=== PATIENT | female | born 1975 | race Caucasian/White ===

== ENCOUNTER 2023-07-20 16:06 | Inpatient (IN) | payer MEDICAID ==
[~2023-07-20] VITALS: Ht 160 cm; Wt 90.7 kg
[2023-07-20 16:38] VITALS: BP 142/87; PULSE 109; RESP 18; TEMP 98.3; O2SAT 95
[2023-07-20] MEDS ORDERED: THIAMINE 200 MG/2 ML VIAL IV ONE (17:15)
[2023-07-20] MEDS ORDERED: FOLIC ACID 1 MG TAB PO ONE (17:15)
[2023-07-20] MEDS ORDERED: ONDANSETRON 4 MG/2 ML VIAL IVP ONE (17:15)
[2023-07-20] MEDS ORDERED: NACL 0.9% 1,000 ML IV ONE (17:15)
[2023-07-20 17:30] LABS: BILIRUBIN,URINE 3+ (NEGATIVE); BLOOD, URINE NEGATIVE (NEGATIVE); LEUKOCYTE ESTERASE ,URINE TRACE (NEGATIVE); NITRITE, URINE POSITIVE (NEGATIVE); PH,URINE 5.5 (5.0-9.0); PROTEIN,URINE 2+ (NEGATIVE); UGLUCOSE TRACE (NEGATIVE)
[2023-07-20 17:32] LABS: APPEARANCE,URINE SLIGHTLY CLOUDY (CLEAR); COLOR,URINE ORANGE (YELLOW)
[2023-07-20 17:36] LABS: ICTOTEST POSITIVE (NEGATIVE)
[2023-07-20 17:40] LABS: RBC,URINE 0-5 /HPF (0-5)
[2023-07-20 17:41] LABS: BACTERIA,URINE 10-30 (MOD) /HPF (None Seen); SQUAMOUS EPITHELIAL CELL,UR 4-10 (MOD) /LPF (0-3 (FEW))
[2023-07-20 17:41] LABS: BASOPHILS % (AUTO) 0.2 % (0.0-2.0); EOSINOPHILS % (AUTO) 0.5 % (0.0-4.0); HEMATOCRIT 35.6 % (36-48); HEMOGLOBIN 12.1 g/dL (12.0-16.0); LYMPHOCYTES # (AUTO) 2.2 K/uL (2.5-16.5); LYMPHOCYTES % (AUTO) 36.6 % (20.5-51.1); MEAN CORPUSCULAR HEMOGLOBIN 35 pg (27-31); MEAN CORPUSCULAR HGB CONC 34 g/dL (33-37); MEAN CORPUSCULAR VOLUME 102.2 fL (80-94); MONOCYTES # (AUTO) 0.9 K/uL (0.8-1.0); NEUTROPHILS % (AUTO) 48.7 % (42.2-75.2); PLATELET COUNT (AUTO) 80 K/uL (140-450); RED BLOOD CELL COUNT(AUTO) 3.48 MIL/uL (4.20-5.40); WHITE BLOOD COUNT (AUTO) 6.1 K/uL (4.8-10.8)
[2023-07-20 17:42] LABS: AMPHETAMINE, URINE NEGATIVE ng/ml (NEG <=1000); BARBITURATE, URINE NEGATIVE ng/ml (NEG <=200); BENZODIAZEPINE, URINE NEGATIVE ng/mL (NEG <=200); CANNABINOID, URINE NEGATIVE ng/mL (NEG <=50); COCAINE, URINE NEGATIVE ng/mL (NEG <=300); OPIATE, URINE NEGATIVE ng/mL (NEG <=2000); PHENCYCLIDINE SCREEN,URINE NEGATIVE ng/mL (NEG <=25)
[2023-07-20 17:50] LABS: INR 1.46 (0.8-1.2)
[2023-07-20 17:56] LABS: ALBUMIN 2.5 g/dL (3.4-5.0); ANION GAP 15.8 (8-16); CALCIUM 7.5 mg/dL (8.5-10.1); CARBON DIOXIDE 32.8 mmol/L (21-32); CREATININE 0.8 mg/dL (0.6-1.3); TOTAL BILIRUBIN 3.3 mg/dL (0.0-1.0); TOTAL PROTEIN, SERUM 7.3 g/dL (6.4-8.2)
[2023-07-20 17:58] LABS: POTASSIUM 2.6 mmol/L (3.5-5.1)
[2023-07-20] MEDS ORDERED: KCL 20 MEQ IN 100 mL PREMIX 200 ML IV ONE (18:30)
[2023-07-20] MEDS ORDERED: POTASSIUM CHLORIDE 10 MEQ TABER PO ONE (18:30)
[2023-07-20] MEDS ORDERED: ONDANSETRON 4 MG/2 ML VIAL IVP PRN (19:00)
[2023-07-20] MEDS ORDERED: HYDROcodone/APAP 5/325 MG 1 TAB TAB PO PRN (19:00)
[2023-07-20] MEDS: LACTATED RINGERS 1,000 ML IV SCH (19:05)
[2023-07-20] MEDS ORDERED: cefTRIAXone 1,000 MG VIAL ONE (19:20)
[2023-07-20] MEDS: LACTULOSE 20 GM/30 ML UDC PO SCH (22:43)
[2023-07-20] MEDS: LORazepam 2 MG/ML VIAL IVP PRN (22:44)
[2023-07-21] MEDS ORDERED: GABA300C PO (03:14)
[2023-07-21] MEDS ORDERED: ATOR20TA PO (03:14)
[2023-07-21] MEDS ORDERED: PANT40EC PO (03:14)
[2023-07-21] MEDS: MORPHINE SULFATE 2 MG/ML SYR IVP PRN ×2 (03:36→11:05)
[2023-07-21 06:42] LABS: BASOPHILS % (AUTO) 0.4 % (0.0-2.0); EOSINOPHILS % (AUTO) 0.4 % (0.0-4.0); HEMATOCRIT 33.8 % (36-48); HEMOGLOBIN 11.5 g/dL (12.0-16.0); LYMPHOCYTES # (AUTO) 1.6 K/uL (2.5-16.5); LYMPHOCYTES % (AUTO) 29.8 % (20.5-51.1); MEAN CORPUSCULAR HEMOGLOBIN 35 pg (27-31); MEAN CORPUSCULAR HGB CONC 34 g/dL (33-37); MEAN CORPUSCULAR VOLUME 103.2 fL (80-94); MONOCYTES # (AUTO) 0.6 K/uL (0.8-1.0); NEUTROPHILS % (AUTO) 57.4 % (42.2-75.2); PLATELET COUNT (AUTO) 69 K/uL (140-450); RED BLOOD CELL COUNT(AUTO) 3.28 MIL/uL (4.20-5.40); RED CELL DISTRIBUTION WIDTH 16.4 % (11.6-13.7); WHITE BLOOD COUNT (AUTO) 5.3 K/uL (4.8-10.8)
[2023-07-21 06:57] LABS: ALBUMIN 2.4 g/dL (3.4-5.0); ANION GAP 15.4 (8-16); CARBON DIOXIDE 30.1 mmol/L (21-32); CREATININE 0.9 mg/dL (0.6-1.3); POTASSIUM 3.5 mmol/L (3.5-5.1); TOTAL BILIRUBIN 4.7 mg/dL (0.0-1.0); TOTAL PROTEIN, SERUM 6.8 g/dL (6.4-8.2)
[2023-07-21] MEDS: LACTATED RINGERS 1,000 ML IV SCH ×2 (08:26→15:31)
[2023-07-21 08:30] VITALS: BP 116/46; PULSE 101; PULSE 99; RESP 18; TEMP 98.2; O2SAT 93
[2023-07-21] MEDS: LACTULOSE 20 GM/30 ML UDC PO SCH ×2 (10:05→20:20)
[2023-07-21 12:00] VITALS: BP 130/63; PULSE 96; PULSE 97; RESP 18; TEMP 97.7; O2SAT 94
[2023-07-21] MEDS ORDERED: MAG SULF 2000 MG/WATER PREMIX 50 ML IV PRN (12:15)
[2023-07-21] MEDS: LORazepam 2 MG/ML VIAL IVP PRN ×2 (12:41→19:02)
[2023-07-21] MEDS: GABAPENTIN 300 MG CAP PO SCH ×2 (13:01→20:20)
[2023-07-21] MEDS: chlordiazePOXIDE 25 MG CAP PO SCH ×2 (13:01→17:46)
[2023-07-21 16:00] VITALS: BP 113/60; PULSE 100; PULSE 102; RESP 18; TEMP 98.2; O2SAT 93
[2023-07-21 20:00] VITALS: BP 131/69; PULSE 108; PULSE 117; RESP 18; TEMP 98.4; O2SAT 94
[2023-07-21] MEDS: ATORVASTATIN 20 MG TAB PO SCH (20:20)
[2023-07-21] MEDS: traZODone 50 MG TAB PO SCH (23:42)
[2023-07-22] VITALS: BP 104/47; PULSE 122; PULSE 133; RESP 18; TEMP 97.9; O2SAT 92
[2023-07-22] MEDS: LACTATED RINGERS 1,000 ML IV SCH ×3 (02:06→21:05)
[2023-07-22 04:00] VITALS: BP 121/56; PULSE 119; PULSE 121; RESP 17; TEMP 98.9; O2SAT 93
[2023-07-22] MEDS: GABAPENTIN 300 MG CAP PO SCH ×3 (05:15→20:49)
[2023-07-22 05:30] LABS: BASOPHILS % (AUTO) 0.1 % (0.0-2.0); EOSINOPHILS % (AUTO) 0.3 % (0.0-4.0); HEMATOCRIT 30.1 % (36-48); HEMOGLOBIN 10.2 g/dL (12.0-16.0); LYMPHOCYTES # (AUTO) 1.1 K/uL (2.5-16.5); LYMPHOCYTES % (AUTO) 23.5 % (20.5-51.1); MEAN CORPUSCULAR HEMOGLOBIN 35 pg (27-31); MEAN CORPUSCULAR HGB CONC 34 g/dL (33-37); MEAN CORPUSCULAR VOLUME 103.3 fL (80-94); MONOCYTES # (AUTO) 0.6 K/uL (0.8-1.0); MONOCYTES % (AUTO) 13.2 % (1.7-9.3); NEUTROPHILS # (AUTO) 3.1 K/uL (1.8-7.7); NEUTROPHILS % (AUTO) 62.9 % (42.2-75.2); PLATELET COUNT (AUTO) 54 K/uL (140-450); RED BLOOD CELL COUNT(AUTO) 2.91 MIL/uL (4.20-5.40); WHITE BLOOD COUNT (AUTO) 4.9 K/uL (4.8-10.8)
[2023-07-22 05:59] LABS: ALBUMIN 2.1 g/dL (3.4-5.0); CALCIUM 7.1 mg/dL (8.5-10.1); CARBON DIOXIDE 31.1 mmol/L (21-32); CREATININE 0.8 mg/dL (0.6-1.3); POTASSIUM 3.1 mmol/L (3.5-5.1); TOTAL BILIRUBIN 6.7 mg/dL (0.0-1.0)
[2023-07-22 08:00] VITALS: BP 113/41; PULSE 116; PULSE 121; RESP 17; TEMP 97.9; O2SAT 93
[2023-07-22] MEDS: MULTIVITAMIN 1 TAB PO SCH (08:55)
[2023-07-22] MEDS: THIAMINE 100 MG TAB PO SCH (08:55)
[2023-07-22] MEDS: LACTULOSE 20 GM/30 ML UDC PO SCH ×2 (08:56→20:49)
[2023-07-22] MEDS: PANTOPRAZOLE 40 MG TABEC PO SCH (08:56)
[2023-07-22] MEDS: chlordiazePOXIDE 25 MG CAP PO SCH ×3 (08:56→17:46)
[2023-07-22] MEDS: FOLIC ACID 1 MG TAB PO SCH (08:56)
[2023-07-22] MEDS: POTASSIUM CHLORIDE 10 MEQ TABER PO PRN (10:01)
[2023-07-22 12:00] VITALS: BP 112/46; PULSE 109; PULSE 116; RESP 18; TEMP 96.9; O2SAT 96
[2023-07-22] MEDS: LORazepam 2 MG/ML VIAL IVP PRN (12:17)
[2023-07-22] MEDS ORDERED: MAG SULF 2000 MG/WATER PREMIX 50 ML IV SCH (13:05)
[2023-07-22 16:00] VITALS: BP 103/57; PULSE 98; RESP 18; TEMP 97.8; O2SAT 99
[2023-07-22 20:00] VITALS: BP 127/59; PULSE 101; PULSE 102; RESP 17; TEMP 98.4; O2SAT 93
[2023-07-22] MEDS: traZODone 50 MG TAB PO SCH (20:49)
[2023-07-22] MEDS: ATORVASTATIN 20 MG TAB PO SCH (20:50)
[2023-07-22] MEDS: MORPHINE SULFATE 2 MG/ML SYR IVP PRN (22:32)
[2023-07-23] VITALS: BP 116/49; PULSE 109; PULSE 118; RESP 18; TEMP 98.7; O2SAT 98
[2023-07-23] MEDS: LACTATED RINGERS 1,000 ML IV SCH ×2 (03:36→07:05)
[2023-07-23 04:00] VITALS: BP 125/53; PULSE 106; PULSE 109; RESP 18; TEMP 98.7; O2SAT 95
[2023-07-23] MEDS: GABAPENTIN 300 MG CAP PO SCH ×3 (05:14→22:15)
[2023-07-23 06:47] LABS: BASOPHILS % (AUTO) 0.8 % (0.0-2.0); EOSINOPHILS # (AUTO) 0.1 K/uL (0-0.4); EOSINOPHILS % (AUTO) 1.4 % (0.0-4.0); HEMATOCRIT 30.6 % (36-48); HEMOGLOBIN 10.3 g/dL (12.0-16.0); LYMPHOCYTES # (AUTO) 1.4 K/uL (2.5-16.5); LYMPHOCYTES % (AUTO) 27.5 % (20.5-51.1); MEAN CORPUSCULAR HEMOGLOBIN 35 pg (27-31); MEAN CORPUSCULAR HGB CONC 34 g/dL (33-37); MEAN CORPUSCULAR VOLUME 104.6 fL (80-94); MONOCYTES # (AUTO) 0.5 K/uL (0.8-1.0); MONOCYTES % (AUTO) 10.3 % (1.7-9.3); PLATELET COUNT (AUTO) 64 K/uL (140-450); RED BLOOD CELL COUNT(AUTO) 2.92 MIL/uL (4.20-5.40); RED CELL DISTRIBUTION WIDTH 17.5 % (11.6-13.7)
[2023-07-23 07:14] LABS: ALBUMIN 2.1 g/dL (3.4-5.0); ANION GAP 9.5 (8-16); CALCIUM 7.9 mg/dL (8.5-10.1); CARBON DIOXIDE 30.8 mmol/L (21-32); CREATININE 0.6 mg/dL (0.6-1.3); POTASSIUM 3.3 mmol/L (3.5-5.1); TOTAL BILIRUBIN 7.9 mg/dL (0.0-1.0)
[2023-07-23 08:00] VITALS: BP 104/68; PULSE 104; PULSE 98; RESP 20; TEMP 97.7; O2SAT 95
[2023-07-23] MEDS: LACTULOSE 20 GM/30 ML UDC PO SCH (08:29)
[2023-07-23] MEDS: chlordiazePOXIDE 25 MG CAP PO SCH ×3 (08:30→22:14)
[2023-07-23] MEDS: THIAMINE 100 MG TAB PO SCH (08:30)
[2023-07-23] MEDS: MULTIVITAMIN 1 TAB PO SCH (08:30)
[2023-07-23] MEDS: FOLIC ACID 1 MG TAB PO SCH (08:30)
[2023-07-23] MEDS: PANTOPRAZOLE 40 MG TABEC PO SCH (08:31)
[2023-07-23] MEDS: POTASSIUM CHLORIDE 10 MEQ TABER PO PRN (08:35)
[2023-07-23] MEDS: levoFLOXacin 250 MG TAB PO SCH (12:07)
[2023-07-23] MEDS: LORazepam 2 MG/ML VIAL IVP PRN (13:29)
[2023-07-23] MEDS: ACETAMINOPHEN 325 MG TAB PO PRN (13:50)
[2023-07-23 15:06] LABS: HEPATITIS A ANTIBODY IGM Negative (Negative); HEPATITIS B CORE AB TOTAL Negative (Negative); HEPATITIS B CORE, IGM Negative (Negative); HEPATITIS B SURFACE ANTIBODY Reactive (.); HEPATITIS B SURFACE ANTIGEN Negative (Negative); HEPATITIS C VIRUS ANTIBODY Non Reactive (Non Reactive)
[2023-07-23 16:00] VITALS: BP 121/70; PULSE 96; RESP 18; TEMP 97.9; O2SAT 94
[2023-07-23] MEDS: MORPHINE SULFATE 2 MG/ML SYR IVP PRN (18:35)
[2023-07-23 20:00] VITALS: PULSE 99; RESP 20; O2SAT 95
[2023-07-23 22:00] VITALS: BP 125/82; PULSE 86; RESP 18; TEMP 98; O2SAT 96
[2023-07-23] MEDS: traZODone 50 MG TAB PO SCH (22:12)
[2023-07-23] MEDS: ATORVASTATIN 20 MG TAB PO SCH (22:14)
[2023-07-24] VITALS: BP 118/68; PULSE 81; RESP 18; TEMP 98.4; O2SAT 95
[2023-07-24 04:38] LABS: BASOPHILS % (AUTO) 0.2 % (0.0-2.0); EOSINOPHILS # (AUTO) 0.1 K/uL (0-0.4); EOSINOPHILS % (AUTO) 1.8 % (0.0-4.0); HEMATOCRIT 29.1 % (36-48); HEMOGLOBIN 9.8 g/dL (12.0-16.0); LYMPHOCYTES # (AUTO) 1.3 K/uL (2.5-16.5); LYMPHOCYTES % (AUTO) 28.5 % (20.5-51.1); MEAN CORPUSCULAR HEMOGLOBIN 36 pg (27-31); MEAN CORPUSCULAR HGB CONC 34 g/dL (33-37); MEAN CORPUSCULAR VOLUME 105.2 fL (80-94); MONOCYTES # (AUTO) 0.6 K/uL (0.8-1.0); MONOCYTES % (AUTO) 14.2 % (1.7-9.3); NEUTROPHILS # (AUTO) 2.5 K/uL (1.8-7.7); NEUTROPHILS % (AUTO) 55.3 % (42.2-75.2); PLATELET COUNT (AUTO) 70 K/uL (140-450); RED BLOOD CELL COUNT(AUTO) 2.77 MIL/uL (4.20-5.40); RED CELL DISTRIBUTION WIDTH 17.7 % (11.6-13.7); WHITE BLOOD COUNT (AUTO) 4.5 K/uL (4.8-10.8)
[2023-07-24 04:56] LABS: ALBUMIN 1.8 g/dL (3.4-5.0); CARBON DIOXIDE 30.2 mmol/L (21-32); CREATININE 0.7 mg/dL (0.6-1.3); POTASSIUM 3.2 mmol/L (3.5-5.1); TOTAL BILIRUBIN 7.3 mg/dL (0.0-1.0); TOTAL PROTEIN, SERUM 5.7 g/dL (6.4-8.2)
[2023-07-24] MEDS: chlordiazePOXIDE 25 MG CAP PO SCH ×2 (06:40→12:44)
[2023-07-24] MEDS: GABAPENTIN 300 MG CAP PO SCH ×2 (06:41→12:44)
[2023-07-24 07:58] VITALS: PULSE 95; RESP 19; O2SAT 94
[2023-07-24 07:59] VITALS: BP 95/41; PULSE 95; RESP 19; TEMP 97.8; O2SAT 94
[2023-07-24] MEDS: MULTIVITAMIN 1 TAB PO SCH (08:19)
[2023-07-24] MEDS: PANTOPRAZOLE 40 MG TABEC PO SCH (08:19)
[2023-07-24] MEDS: POTASSIUM CHLORIDE 10 MEQ TABER PO PRN (08:20)
[2023-07-24] MEDS: FOLIC ACID 1 MG TAB PO SCH (08:20)
[2023-07-24] MEDS: levoFLOXacin 250 MG TAB PO SCH (08:20)
[2023-07-24] MEDS: THIAMINE 100 MG TAB PO SCH (08:20)
[2023-07-24] MEDS ORDERED: LACTULOSE 20 GM/30 ML UDC PO SCH (09:00)
[2023-07-24 10:19] VITALS: BP 123/66; PULSE 101; RESP 18; TEMP 96.8
[2023-07-24 10:23] VITALS: BP 123/66; PULSE 101; RESP 19; TEMP 97.8; O2SAT 98
[2023-07-24] MEDS: ACETAMINOPHEN 325 MG TAB PO PRN (10:29)
[2023-07-24] MEDS ORDERED: LIB25 PO ×2 (11:39→16:10)
[2023-07-24] MEDS ORDERED: THIA-10 PO (11:44)
[2023-07-24] MEDS ORDERED: LEVO-481 PO (11:44)
[2023-07-24] MEDS ORDERED: FOLI1TAB90 PO (11:44)
[2023-07-24] MEDS ORDERED: LACT-85 PO (11:44)
[2023-07-24 12:42] LABS: FLU A ANTIGEN negative (NEGATIVE); FLU B ANTIGEN NEGATIVE (NEGATIVE)
[2023-08-13] MEDS ORDERED: FURO40TA9 PO (17:56)
[2023-08-13] MEDS ORDERED: LACT10SO8 PO (17:56)
[2023-08-13] MEDS ORDERED: SPIR100T46 PO (17:56)
[2023-08-13] MEDS ORDERED: ACET-9525 PO (17:56)
[2023-08-13] MEDS ORDERED: PANT40EC56 PO (17:56)
== END 2023-07-24 15:00 | disposition home or self-care (01) | DRG 280 ==
LOC: MED 16:06 → MTU 19:00
PROVIDERS: ADMIT Internal Medicine; ATTEND Internal Medicine
DX: K70.10 Alcoholic hepatitis without ascites (principal); K70.30 Alcoholic cirrhosis of liver without ascites; D69.6 Thrombocytopenia, unspecified; E44.1 Mild protein-calorie malnutrition; E77.8 Other disorders of glycoprotein metabolism; E83.51 Hypocalcemia; K76.82 Hepatic encephalopathy; D69.59 Other secondary thrombocytopenia; K29.20 Alcoholic gastritis without bleeding; F10.139 Alcohol abuse with withdrawal, unspecified; Y90.9 Presence of alcohol in blood, level not specified; F10.129 Alcohol abuse with intoxication, unspecified; E80.6 Other disorders of bilirubin metabolism; G62.9 Polyneuropathy, unspecified; N39.0 Urinary tract infection, site not specified; Z68.35 Body mass index [BMI] 35.0-35.9, adult
CPT/HCPCS: 36415; 76705; 80053; 80305; 81001; 82140; 83690; 83735; 85025; 85610; 86704; 86706; 86708; 86709; 86803; 86886; 86900; 86901; 87081; 87086; 87340; 96365; 96367; 96375; 99285; G0482; J0696; J1956; J2060; J2270; J2405; J3411; J3475; J3480; Q0092

== ENCOUNTER 2023-07-26 14:12 | Emergency (ER) | payer MEDICAID ==
[~2023-07-26] VITALS: Ht 160 cm; Wt 90.7 kg
[~2023-07-26 14:12] MED LIST: ATOR20TA PO; FOLI1TAB90 PO; GABA300C PO; LACT-85 PO; LEVO-481 PO; LIB25 PO; PANT40EC PO; THIA-10 PO
[2023-07-26 14:19] VITALS: BP 108/62; PULSE 98; RESP 13; TEMP 97.8; O2SAT 99
[2023-07-26] MEDS ORDERED: MORPHINE SULFATE 4 MG/ML SYR IM ONE (16:30)
[2023-07-26 16:52] LABS: APPEARANCE,URINE CLEAR (CLEAR); BILIRUBIN,URINE 3+ (NEGATIVE); BLOOD, URINE NEGATIVE (NEGATIVE); LEUKOCYTE ESTERASE ,URINE NEGATIVE (NEGATIVE); NITRITE, URINE NEGATIVE (NEGATIVE); PH,URINE 5.5 (5.0-9.0); PROTEIN,URINE 1+ (NEGATIVE); UGLUCOSE TRACE (NEGATIVE)
[2023-07-26 17:37] LABS: COLOR,URINE AMBER (YELLOW); ICTOTEST POSITIVE (NEGATIVE)
[2023-07-26] MEDS ORDERED: ACET-8905 PO (17:51)
[2023-07-26 18:56] VITALS: BP 108/56; PULSE 93; RESP 21; TEMP 97.8; O2SAT 98
== END 2023-07-26 18:56 | disposition home or self-care (01) ==
LOC: MED 14:12
DX: R10.13 Epigastric pain (principal); R53.1 Weakness; R06.02 Shortness of breath; Z79.899 Other long term (current) drug therapy
CPT/HCPCS: 81003; 96372; 99283; J2270

== ENCOUNTER 2023-08-05 11:47 | Emergency (ER) | payer MEDICAID ==
[~2023-08-05] VITALS: Ht 160 cm; Wt 97.7 kg
[~2023-08-05 11:47] MED LIST changes: +ACET-8905 PO
[2023-08-05 11:49] VITALS: BP 105/67; PULSE 93; RESP 18; TEMP 97.7; O2SAT 97
[2023-08-05 13:30] LABS: APPEARANCE,URINE CLEAR (CLEAR); BILIRUBIN,URINE 3+ (NEGATIVE); BLOOD, URINE NEGATIVE (NEGATIVE); COLOR,URINE YELLOW (YELLOW); LEUKOCYTE ESTERASE ,URINE TRACE (NEGATIVE); NITRITE, URINE NEGATIVE (NEGATIVE); PH,URINE 6.5 (5.0-9.0); PROTEIN,URINE TRACE (NEGATIVE); UGLUCOSE TRACE (NEGATIVE); UROBILINOGEN,URINE 0.2 EU/dL (0.2 - 1)
[2023-08-05 13:45] LABS: ICTOTEST POSITIVE (NEGATIVE)
[2023-08-05 13:46] LABS: BACTERIA,URINE 1+ /HPF (None Seen); RBC,URINE 0-5 /HPF (0-5); SQUAMOUS EPITHELIAL CELL,UR 80-100 /LPF (0-3 (FEW))
[2023-08-05 13:52] LABS: BASOPHILS # (AUTO) 0.1 K/uL (0.00-0.22); BASOPHILS % (AUTO) 0.7 % (0.0-2.0); EOSINOPHILS # (AUTO) 0.1 K/uL (0-0.4); EOSINOPHILS % (AUTO) 0.9 % (0.0-4.0); HEMATOCRIT 34.2 % (36-48); HEMOGLOBIN 11.6 g/dL (12.0-16.0); LYMPHOCYTES # (AUTO) 1.3 K/uL (2.5-16.5); LYMPHOCYTES % (AUTO) 17.4 % (20.5-51.1); MEAN CORPUSCULAR HEMOGLOBIN 34 pg (27-31); MEAN CORPUSCULAR HGB CONC 34 g/dL (33-37); MEAN CORPUSCULAR VOLUME 99.5 fL (80-94); MONOCYTES # (AUTO) 0.7 K/uL (0.8-1.0); MONOCYTES % (AUTO) 9.7 % (1.7-9.3); NEUTROPHILS # (AUTO) 5.5 K/uL (1.8-7.7); NEUTROPHILS % (AUTO) 71.3 % (42.2-75.2); PLATELET COUNT (AUTO) 214 K/uL (140-450); RED BLOOD CELL COUNT(AUTO) 3.44 MIL/uL (4.20-5.40); RED CELL DISTRIBUTION WIDTH 20.1 % (11.6-13.7); WHITE BLOOD COUNT (AUTO) 7.7 K/uL (4.8-10.8)
[2023-08-05 14:06] LABS: ALBUMIN 1.7 g/dL (3.4-5.0); ANION GAP 7.3 (8-16); CALCIUM 8.1 mg/dL (8.5-10.1); CARBON DIOXIDE 33.7 mmol/L (21-32); CREATININE 0.8 mg/dL (0.6-1.3); TOTAL BILIRUBIN 17.8 mg/dL (0.0-1.0); TOTAL PROTEIN, SERUM 6.3 g/dL (6.4-8.2)
[2023-08-05] MEDS ORDERED: MORPHINE SULFATE 4 MG/ML SYR IVP ONE (15:05)
[2023-08-05] MEDS ORDERED: NACL 0.9% 500 ML IV ONE (15:05)
[2023-08-05] MEDS ORDERED: ONDANSETRON 4 MG/2 ML VIAL IVP ONE (15:05)
[2023-08-05] MEDS ORDERED: POTASSIUM CHLORIDE 10 MEQ TABER PO ONE (16:05)
[2023-08-05] MEDS ORDERED: [UNRECOGNIZED DRUG - CODE] PO (16:14)
[2023-08-05] MEDS ORDERED: LACT-85 PO (16:14)
[2023-08-05] MEDS ORDERED: CIPR500T4 PO (16:24)
[2023-08-05] MEDS ORDERED: TRAM50TA3 PO (16:24)
[2023-08-05 16:32] VITALS: BP 108/67; PULSE 88; RESP 17; TEMP 97.5; O2SAT 98
== END 2023-08-05 16:32 | disposition home or self-care (01) ==
LOC: MED 11:47
DX: R14.0 Abdominal distension (gaseous) (principal); J45.909 Unspecified asthma, uncomplicated; I10 Essential (primary) hypertension; Z98.890 Other specified postprocedural states; Z79.899 Other long term (current) drug therapy; Z79.2 Long term (current) use of antibiotics
CPT/HCPCS: 36415; 74176; 80053; 81001; 81025; 82140; 83690; 85025; 87086; 96361; 96374; 96375; 99285; J2270; J2405